=== PATIENT | female | born 1985 | race Two or more races ===

== ENCOUNTER 2019-01-29 06:03 | Emergency (ER) | payer SELFPAY ==
[~2019-01-29 06:03] MED LIST: ONDA4TAB10 PO
[2019-01-29] MEDS ORDERED: IV NORMAL SALINE 1,000ML 1,000 ML IV ONE (06:30)
[2019-01-29] MEDS ORDERED: SUMAtriptan SUCC 6 MG/0.5 ML VIAL SQ ONE (06:30)
[2019-01-29] MEDS ORDERED: KETOROLAC 30 MG/ML VIAL. IVP ONE (06:30)
--- NOTE | 2019-01-29 06:35 | PHYS DOC ---
Past History Past Medical History: Anxiety, Bipolar, Depression, Other Additional Past Medical Histor: endometriosis, headaches Past Surgical History: , Tubal ligation Alcohol Use: Occasionally Drug Use: None Adult General Chief Complaint Chief Complaint: HEADACHE HPI HPI Patient is a 34-year-old female who presents with complaint of severe headache for over a month now. Patient rates her pain at a 20 out of 10. She states that this is the worst pain she has ever felt. Patient states that she has a history of chronic headaches and states that she was prescribed NSAIDs for her headaches by [facility] that stated that she has fluid on her brain. She denies any nausea or vomiting. She does admit to photophobia. Patient states that she had one beer to drink last night.[] Review of Systems Review of Systems Constitutional: Denies fever or chills [] Eyes: Denies change in visual acuity, redness, or eye pain [] Respiratory: Denies cough or shortness of breath [] Cardiovascular: No additional information not addressed in HPI [] Neurologic: Complains of headache without focal weakness or sensory changes [] All other systems were reviewed and found to be within normal limits, except as documented in this note. Allergies Allergies Allergies Coded Allergies Type Severity Reaction Last Updated Verified Penicillins Allergy Intermediate swelling 08/24/14 Yes cefazolin Allergy Intermediate swelling 08/24/14 Yes Physical Exam Physical Exam Constitutional: Well developed, well nourished, no acute distress, non-toxic appearance. [] HENT: Normocephalic, atraumatic, bilateral external ears normal, oropharynx moist, no oral exudates, nose normal. [] Eyes: PERRLA, EOMI, conjunctiva normal, no discharge. [] Neck: Normal range of motion, no tenderness, supple. [] Cardiovascular: Regular rate and rhythm[] Lungs & Thorax: Bilateral breath sounds clear to auscultation [] Abdomen: Bowel sounds normal, soft, no tenderness. [] Skin: Warm, dry, no erythema, no rash. [] Extremities: No tenderness, no cyanosis, no clubbing, ROM intact, no edema. [] Neurologic: Alert and oriented X 3, no focal deficits noted. [] Current Patient Data Vital Signs Vital Signs Date Time Temp Pulse Resp B/P (MAP) Pulse Ox O2 Delivery O2 Flow Rate FiO2 01/29/19 06:18 99.0 98 16 98 EKG EKG [] Radiology/Procedures Radiology/Procedures [] Impressions: PROCEDURE: CT HEAD WO CONTRAST PQRS Compliance statement: One or more of the following individualized dose reduction techniques were utilized for this examination: 1. Automated exposure control. 2. Adjustment of the mA and/or kV according to patient size. 3. Use of iterative reconstruction technique. Indication:Headache. TECHNIQUE: CT head without IV contrast COMPARISON: 08/24/2014 FINDINGS: No pathologic extra-axial or intra-axial fluid collection. The ventricles and basal cisterns are within normal limits. No acute intracranial bleed. No focal loss of quach-white differentiation. Visualized orbits within normal limits. No suspicious calvarial lesion. Mucoperiosteal thickening is seen of the bilateral frontal and sphenoid sinuses. Clear mastoid air cells. IMPRESSION: 1. No acute intracranial process on this noncontrast CT. If concern for acute ischemic stroke is high, please consider MRI brain. 2. Frontal, ethmoid and sphenoid sinus disease. Electronically signed by: Joe Sellers DO (01/29/2019 6:54 AM) [facility] Course & Med Decision Making Course & Med Decision Making Pertinent Labs and Imaging studies reviewed. (See chart for details) [] Dragon Disclaimer Dragon Disclaimer This electronic medical record was generated, in whole or in part, using a voice recognition dictation system. Departure Departure: Impression: Primary Impression: Chronic headaches Additional Impression: Alcohol intoxication Disposition: 01 HOME, SELF-CARE Condition: STABLE Referrals: JESUS ALONZO (PCP) Patient Instructions: Alcohol Intoxication, Alcohol and Headaches, Form - Excuse from Work, School, or Physical Activity, Migraine Headache Scripts Sumatriptan Succinate (IMITREX) 100 Mg Tablet 1 TAB PO UD PRN for HEADACHE, #9 TAB Prov: DANIS LEIVA Jr. DO 01/29/19 Problem Qualifiers Primary Impression: Chronic headaches Headache type: unspecified Intractability: not intractable Qualified Codes: R51 - Headache Additional Impression: Alcohol intoxication Complication of substance-induced condition: uncomplicated Qualified Codes: F10.920 - Alcohol use, unspecified with intoxication, uncomplicated DANIS LEIVA Jr., DO Jan 29, 2019 06:35
--- NOTE | 2019-01-29 06:57 | RAD ---
PQRS Compliance statement: One or more of the following individualized dose reduction techniques were utilized for this examination: 1. Automated exposure control. 2. Adjustment of the mA and/or kV according to patient size. 3. Use of iterative reconstruction technique. Indication:Headache. TECHNIQUE: CT head without IV contrast COMPARISON: 08/24/2014 FINDINGS: No pathologic extra-axial or intra-axial fluid collection. The ventricles and basal cisterns are within normal limits. No acute intracranial bleed. No focal loss of quach-white differentiation. Visualized orbits within normal limits. No suspicious calvarial lesion. Mucoperiosteal thickening is seen of the bilateral frontal and sphenoid sinuses. Clear mastoid air cells. IMPRESSION: 1. No acute intracranial process on this noncontrast CT. If concern for acute ischemic stroke is high, please consider MRI brain. 2. Frontal, ethmoid and sphenoid sinus disease. Electronically signed by: Jeo Sellers DO (01/29/2019 6:54 AM) [facility]
[2019-01-29 07:03] VITALS: BP 105/54
[2019-01-29 07:30] LABS: BASO # 0.1 x10^3/uL (0.0-0.2); BASO % 1 % (0-3); EOS # 0.1 x10^3/uL (0.0-0.7); EOS % 2 % (0-3); HEMATOCRIT 34.6 % (36.0-47.0); HEMOGLOBIN 11.1 g/dL (12.0-15.5); LYMPH # 1.2 x10^3/uL (1.0-4.8); LYMPH % 19 % (24-48); MEAN CORPUSCULAR HEMOGLOBIN 27 pg (25-35); MEAN CORPUSCULAR HGB CONC 32 g/dL (31-37); MEAN CORPUSCULAR VOLUME 83 fL (79-100); MONO # 0.4 x10^3/uL (0.0-1.1); MONO % 6 % (0-9); NEUT # 4.5 x10^3uL (1.8-7.7); NEUT % 71 % (31-73); PLATELET COUNT 295 x10^3/uL (140-400); RED BLOOD COUNT 4.16 x10^6/uL (3.50-5.40); RED CELL DISTRIBUTION WIDTH 15.9 % (11.5-14.5); WHITE BLOOD COUNT 6.3 x10^3/uL (4.0-11.0)
[2019-01-29 07:39] LABS: CLARITY,URINE CLEAR; COLOR,URINE YELLOW; GLUCOSE,URINE NEG (NEG)
[2019-01-29 07:40] LABS: BACTERIA,URINE 0 /HPF (0-FEW); BILIRUBIN,URINE NEG (NEG); NITRITE,URINE NEG (NEG); RBC,URINE 0 /HPF (0-2); SQUAMOUS EPITHELIAL CELL,UR OCC /LPF; UROBILINOGEN,URINE 0.2 mg/dL (0.2 mg/dL)
[2019-01-29 07:40] LABS: ALBUMIN 2.9 g/dL (3.4-5.0); ALBUMIN/GLOBULIN RATIO 0.6 (1.0-1.7); CALCIUM 7.9 mg/dL (8.5-10.1); CREATININE 0.6 mg/dL (0.6-1.0); GFR 114.4; POTASSIUM 3.6 mmol/L (3.5-5.1); TOTAL BILIRUBIN 0.1 mg/dL (0.2-1.0)
[2019-01-29] MEDS ORDERED: SUMA100T3 PO (07:47)
== END 2019-01-29 07:51 | disposition home or self-care (01) ==
LOC: ER 06:03
DX: G89.29 Other chronic pain (principal); R51 Headache; F10.129 Alcohol abuse with intoxication, unspecified; F41.9 Anxiety disorder, unspecified; F31.9 Bipolar disorder, unspecified; Z88.0 Allergy status to penicillin; Z88.1 Allergy status to other antibiotic agents; Y90.6 Blood alcohol level of 120-199 mg/100 ml
CPT/HCPCS: 36415; 70450; 80053; 81001; 81025; 85025; 87086; 96372; 96374; 99285; G0480; J1885; J3030; J7030

== ENCOUNTER 2020-02-05 15:05 | Emergency (ER) | payer SELFPAY ==
[~2020-02-05] VITALS: Ht 167.6 cm; Wt 60.7 kg
[~2020-02-05 15:05] MED LIST changes: +SUMA100T3 PO
--- NOTE | 2020-02-05 16:01 | PHYS DOC ---
Past History Past Medical History: Anxiety, Bipolar, Depression, Migraines, Other Additional Past Medical Histor: endometriosis, headaches, neurosyphilis Past Surgical History: , Tubal ligation Alcohol Use: Occasionally Drug Use: None Adult General Chief Complaint Chief Complaint: NAUSEA/VOMITING/[facility] HPI Patient is a 35-year-old female who presents for headache. Patient is a poor historian. Patient reports history of migraine but states this is different than her typical migraines. She also reports history of illicit drug use and subsequent poor dentition, has right inferior molar dental carry that could be the culprit for this headache. Denies any fever or COVID-19 questionnaire questions. States headache is right-sided, constant, and is not the worst headache of her life. She admits mild photophobia and nausea, Tylenol has not helped her pain. She denies any neck stiffness or other concerning meningeal signs. Patient also cites history of neurosyphilis, received treatment at [facility] location for this and given her penicillin allergy actually got desensitized and subsequently treated with penicillin G benzathine. Nonetheless, patient reports recontracting syphilis in the past 1 month that was confirmed at [facility] (now closed). She has been in contact with ID specialist at [facility] regarding ICU bed availability for her to come in and get desensitized to penicillin again in the ICU setting for treatment and subsequent discharge home. Review of Systems Review of Systems Fourteen body systems of review of systems have been reviewed. See HPI for pertinent positives and negative responses, other parker all other systems are negative, non-pertinent or non-contributory Allergies Allergies Allergies Coded Allergies Type Severity Reaction Last Updated Verified Penicillins Allergy Intermediate swelling 08/24/14 Yes cefazolin Allergy Intermediate swelling 08/24/14 Yes Physical Exam Physical Exam Constitutional: Well developed, well nourished, no acute distress, non-toxic appearance. HENT: Normocephalic, atraumatic, bilateral external ears normal, oropharynx dry, poor dentition, posterior right molar at tooth position #32 with findings of typical dental carry without any palpable or visual abscess and/or fluctuance, no other oral exudates, nose normal. Eyes: PERRLA, EOMI, conjunctiva normal, no discharge. Neck: Normal range of motion, no tenderness, supple, no stridor. Mild tendernes s to bilateral paracervical muscles with palpation Cardiovascular: Heart rate regular, sinus rhythm, no murmurs rubs or gallops Lungs & Thorax: Bilateral breath sounds clear to auscultation Abdomen: Bowel sounds normal, soft, no tenderness, no masses, no pulsatile masses. Nonsurgical abdomen, no peritoneal signs Skin: Warm, dry, no erythema, no rash. Back: No tenderness, no CVA tenderness. Extremities: No tenderness, no cyanosis, no clubbing, ROM intact, no edema. Neurologic: Alert and oriented X 3, grossly motor & sensory function, no focal deficits noted. No meningeal signs, negative Brudzinski and Kernig tests Psychologic: Flat affect, judgement normal, mood normal. Current Patient Data Vital Signs Vital Signs Date Time Temp Pulse Resp B/P (MAP) Pulse Ox O2 Delivery O2 Flow Rate FiO2 02/05/20 15:34 97.9 66 16 116/73 (87) 02/05/20 15:33 98 Room Air Lab Results Laboratory Tests Test 02/05/20 15:46 02/05/20 16:41 02/05/20 16:58 White Blood Count 4.8 x10^3/uL (4.0-11.0) Red Blood Count 4.63 x10^6/uL (3.50-5.40) Hemoglobin 11.1 g/dL (12.0-15.5) Hematocrit 35.5 % (36.0-47.0) Mean Corpuscular Volume 77 fL (79-100) Mean Corpuscular Hemoglobin 24 pg (25-35) Mean Corpuscular Hemoglobin Concent 31 g/dL (31-37) Red Cell Distribution Width 18.2 % (11.5-14.5) Platelet Count 240 x10^3/uL (140-400) Neutrophils (%) (Auto) 66 % (31-73) Lymphocytes (%) (Auto) 21 % (24-48) Monocytes (%) (Auto) 5 % (0-9) Eosinophils (%) (Auto) 6 % (0-3) Basophils (%) (Auto) 2 % (0-3) Neutrophils # (Auto) 3.1 x10^3uL (1.8-7.7) Lymphocytes # (Auto) 1.0 x10^3/uL (1.0-4.8) Monocytes # (Auto) 0.2 x10^3/uL (0.0-1.1) Eosinophils # (Auto) 0.3 x10^3/uL (0.0-0.7) Basophils # (Auto) 0.1 x10^3/uL (0.0-0.2) Sodium Level 136 mmol/L (136-145) Potassium Level 3.2 mmol/L (3.5-5.1) Chloride Level 102 mmol/L (98-107) Carbon Dioxide Level 23 mmol/L (21-32) Anion Gap 11 (6-14) Blood Urea Nitrogen 9 mg/dL (7-20) Creatinine 0.8 mg/dL (0.6-1.0) Estimated GFR (Cockcroft-Gault) 81.6 BUN/Creatinine Ratio 11 (6-20) Glucose Level 91 mg/dL (70-99) Calcium Level 8.5 mg/dL (8.5-10.1) Total Bilirubin 0.4 mg/dL (0.2-1.0) Aspartate Amino Transf (AST/SGOT) 248 U/L (15-37) Alanine Aminotransferase (ALT/SGPT) 191 U/L (14-59) Alkaline Phosphatase 76 U/L (46-116) Total Protein 7.3 g/dL (6.4-8.2) Albumin 3.4 g/dL (3.4-5.0) Albumin/Globulin Ratio 0.9 (1.0-1.7) Lipase 154 U/L (73-393) Urine Collection Type Unknown Urine Color Claudia Urine Clarity Hazy Urine pH 6.0 Urine Specific Stephenson >=1.030 Urine Protein Trace (NEG-TRACE) Urine Glucose (UA) Neg mg/dL (NEG) Urine Ketones (Stick) Neg mg/dL (NEG) Urine Blood Small (NEG) Urine Nitrite Neg (NEG) Urine Bilirubin Neg (NEG) Urine Urobilinogen Dipstick 1.0 mg/dL (0.2 mg/dL) Urine Leukocyte Esterase Neg (NEG) Urine RBC 0 /HPF (0-2) Urine WBC 11-20 /HPF (0-4) Urine Squamous Epithelial Cells Mod /LPF Urine Bacteria Few /HPF (0-FEW) Urine Mucus Mod /LPF Urine Test Negative (NEG) Urine Opiates Screen Neg (NEG) Urine Methadone Screen Neg (NEG) Urine Barbiturates Neg (NEG) Urine Phencyclidine Screen Neg (NEG) Urine Amphetamine/Methamphetamine Neg (NEG) Urine Benzodiazepines Screen Neg (NEG) Urine Cocaine Screen Neg (NEG) Urine Cannabinoids Screen Neg (NEG) Urine Ethyl Alcohol Neg (NEG) Bedside Urine HCG, Qualitative hcg negative (Negative) EKG EKG [] Radiology/Procedures Radiology/Procedures [] Heart Score HEART Score for Chest Pain: HEART Score for Chest Pain Response (Comments) Value History Slighlty/Non-Suspicious 0 ECG Normal 0 Age < 45 0 Risk Factors No Risk Factors 0 Total 0 Risk Factors: Risk Factors: DM, Current or recent (<one month) smoker, HTN, HLP, family history of CAD, obesity. Risk Scores: Risk Factors: DM, Current or recent (<one month) smoker, HTN, HLP, family history of CAD, obesity. Course & Med Decision Making Course & Med Decision Making Pertinent Labs and Imaging studies reviewed. (See chart for details) Airway, breathing, and circulation grossly unremarkable Comprehensive history and physical exam obtained, patient treated for typical headache with IV Compazine, Benadryl, IV fluids, and Toradol injection with moderate relief in symptoms I feel at this time patient's headache likely due to musculoskeletal versus dental etiology With that said, patient has concerning history of neurosyphilis that was treated but is again active I discussed case over with Drs. Barnett (ID) and Theresa (Neuro) regarding patient's case to review prior visits, and ask for recommendations regarding current visit today Joint decision among all to transfer patient over to [facility] for ICU admission, patient to be desensitized overnight with plans for syphilis treatment tomorrow morning as there is currently an ICU bed available I discussed this plan of care with patient who is amenable. Patient stabilized and transported to [facility] via ambulance in stable condition for continued medical care for her headache and treatment for syphilis and subsequent infected dental carry with penicillin medication Dragon Disclaimer Dragon Disclaimer This electronic medical record was generated, in whole or in part, using a voice recognition dictation system. Departure Departure: Impression: Primary Impression: Syphilis Additional Impressions: History of neurosyphilis Headache Infected dental carries Disposition: 02 DC/TRF OTHER SHORT TERM HOS ([facility]) Admitting Physician: Other (Dr. Cardenas) Condition: STABLE Referrals: PCP,NO (PCP) Problem Qualifiers CLAUDETTE LYONS DO Feb 05, 2020 16:01
[2020-02-05 16:12] LABS: BASO # 0.1 x10^3/uL (0.0-0.2); BASO % 2 % (0-3); EOS # 0.3 x10^3/uL (0.0-0.7); EOS % 6 % (0-3); HEMATOCRIT 35.5 % (36.0-47.0); HEMOGLOBIN 11.1 g/dL (12.0-15.5); LYMPH % 21 % (24-48); MEAN CORPUSCULAR HEMOGLOBIN 24 pg (25-35); MEAN CORPUSCULAR HGB CONC 31 g/dL (31-37); MEAN CORPUSCULAR VOLUME 77 fL (79-100); MONO # 0.2 x10^3/uL (0.0-1.1); MONO % 5 % (0-9); NEUT # 3.1 x10^3uL (1.8-7.7); NEUT % 66 % (31-73); PLATELET COUNT 240 x10^3/uL (140-400); RED BLOOD COUNT 4.63 x10^6/uL (3.50-5.40); RED CELL DISTRIBUTION WIDTH 18.2 % (11.5-14.5); WHITE BLOOD COUNT 4.8 x10^3/uL (4.0-11.0)
[2020-02-05 16:16] LABS: CALCIUM 8.5 mg/dL (8.5-10.1); CREATININE 0.8 mg/dL (0.6-1.0); GFR 81.6; POTASSIUM 3.2 mmol/L (3.5-5.1)
[2020-02-05 16:22] LABS: ALBUMIN 3.4 g/dL (3.4-5.0); ALBUMIN/GLOBULIN RATIO 0.9 (1.0-1.7); TOTAL BILIRUBIN 0.4 mg/dL (0.2-1.0); TOTAL PROTEIN 7.3 g/dL (6.4-8.2)
[2020-02-05] MEDS ORDERED: PROCHLORPERAZINE 10 MG/2 ML VIAL. IV ONE (16:30)
[2020-02-05] MEDS ORDERED: diphenhydrAMINE 50 MG/ML VIAL IVP ONE (16:30)
[2020-02-05] MEDS ORDERED: IV NORMAL SALINE 1,000ML 1,000 ML IV ONE (16:45)
[2020-02-05 17:02] LABS: BILIRUBIN,URINE NEG (NEG); CLARITY,URINE HAZY; COLOR,URINE AMBER; GLUCOSE,URINE NEG (NEG); NITRITE,URINE NEG (NEG)
[2020-02-05 17:03] LABS: U PREG PATIENT NEGATIVE (NEG)
[2020-02-05 17:24] LABS: BACTERIA,URINE FEW /HPF (0-FEW); RBC,URINE 0 /HPF (0-2); SQUAMOUS EPITHELIAL CELL,UR MOD /LPF
[2020-02-05 17:31] LABS: BARBITURATES NEG (NEG); BENZODIAZEPINES NEG (NEG); CANNABINOIDS NEG (NEG); COCAINE NEG (NEG); METHADONE NEG (NEG); OPIATES NEG (NEG); PHENCYCLIDINE NEG (NEG)
[2020-02-05 17:32] LABS: AMPHETAMINE/METHAMPHETAMINE NEG (NEG)
[2020-02-05] MEDS ORDERED: KETOROLAC 15 MG/ML VIAL. IVP ONE (17:45)
[2020-02-05 17:50] VITALS: BP 113/70
== END 2020-02-05 18:20 | disposition short-term general hospital (02) ==
LOC: ER 15:05
DX: A52.3 Neurosyphilis, unspecified (principal); K02.9 Dental caries, unspecified; R11.0 Nausea; F41.9 Anxiety disorder, unspecified; F32.9 Major depressive disorder, single episode, unspecified; G43.909 Migraine, unspecified, not intractable, without status migrainosus; Z98.51 Tubal ligation status; Z98.890 Other specified postprocedural states; Z88.0 Allergy status to penicillin; Z88.1 Allergy status to other antibiotic agents
CPT/HCPCS: 36415; 80053; 80307; 81001; 81025; 83690; 85025; 87086; 96372; 96374; 96375; 99285; J0780; J1200; J1885; J7030